=== PATIENT | male | born 1945 | race Caucasian/White ===

== ENCOUNTER 2017-03-05 09:42 | Outpatient (CLI) | payer MEDICARE, OTHER ==
[~2017-03-05] VITALS: Ht 180.3 cm; Wt 89.6 kg
[2017-03-05] MEDS ORDERED: HYDR-3816 PO (10:08)
[2017-03-05] MEDS ORDERED: LOSA100T28 PO (10:08)
[2017-03-05] MEDS ORDERED: NAPR220C11 PO (10:08)
[2017-03-05] MEDS ORDERED: PHYT100T PO (10:08)
[2017-03-05] MEDS ORDERED: GABA-486 PO (10:08)
[2017-03-05] MEDS ORDERED: POTA99TA21 PO (10:08)
[2017-03-05] MEDS ORDERED: MAGN250T13 PO (10:08)
[2017-03-05] MEDS ORDERED: CYAN500T44 PO (10:08)
[2017-03-05] MEDS ORDERED: OMEP20CA12 PO (10:08)
[2017-03-05] MEDS ORDERED: LEVO112T55 PO (10:08)
[2017-03-05] MEDS ORDERED: CALC-250 PO (10:08)
[2017-03-05] MEDS ORDERED: AMLO5TAB2 PO (10:08)
[2017-03-06] MEDS ORDERED: BICA50TA PO (09:11)
[2017-03-06] MEDS ORDERED: CYAN50008 PO (09:11)
[2017-03-06] MEDS ORDERED: LEVO125T6 PO (09:11)
[2017-03-06] MEDS ORDERED: MELO15TA39 PO (09:11)
[2017-03-06] MEDS ORDERED: GABA600T2 PO (09:11)
== END 2017-03-05 10:10 ==
LOC: PREOP 09:42
PROVIDERS: ATTEND Pain Medicine Pain Medicine
DX: Z01.818 Encounter for other preprocedural examination (principal); G89.4 Chronic pain syndrome; M54.5 Low back pain

== ENCOUNTER 2017-03-09 06:04 | Day surgery (SDC) | payer MEDICARE, OTHER ==
[~2017-03-09] VITALS: Ht 180.3 cm; Wt 89.6 kg
[~2017-03-09 06:04] MED LIST: AMLO5TAB2 PO; BICA50TA PO; CALC-250 PO; CYAN50008 PO; CYAN500T44 PO; GABA-486 PO; GABA600T2 PO; HYDR-3816 PO; LEVO112T55 PO; LEVO125T6 PO; LOSA100T28 PO; MAGN250T13 PO; MELO15TA39 PO; NAPR220C11 PO; OMEP20CA12 PO; PHYT100T PO; POTA99TA21 PO
[2017-03-09] MEDS ORDERED: ceFAZolin 2 GM/50 ML NS 50 ML ONE (06:12)
[2017-03-09] MEDS ORDERED: LACTATED RINGERS 1,000 ML IV PRN (06:41)
[2017-03-09] MEDS ORDERED: CATHETER FLUSH 10 ML SYR IV PRN (06:45)
[2017-03-09] MEDS ORDERED: ceFAZolin 2 GM/NS 50 ML IV ONE (06:45)
[2017-03-09] MEDS ORDERED: fentaNYL INJECTION 100 MCG/2 ML AMP ONE (07:08)
[2017-03-09] MEDS ORDERED: proPOfol 200 MG/20 ML (DIPRIVAN) VIAL IV ONE (07:08)
[2017-03-09 07:19] VITALS: BP 147/77
[2017-03-09] MEDS ORDERED: LIDOCAINE 1% INJ 20 ML (XYLOCAINE) VIAL ONE (07:25)
--- NOTE | 2017-03-09 07:31 | Progress Note-Pre Operative ---
Pre-Operative Progress Note H&P Reviewed The H&P was reviewed, patient examined and no changes noted. Date H&P Reviewed: Mar 09, 2017 Time H&P Reviewed: 07:30 Pre-Operative Diagnosis: chronic pain syndrome, lumbago, degenerative disc disease lumbar TYLER MCWILLIAMS MD Mar 09, 2017 7:31 am
[2017-03-09] MEDS ORDERED: LIDOCAINE 1% INJ 20 ML (XYLOCAINE) VIAL INJ ONE ×2 (08:15→08:30)
[2017-03-09] MEDS ORDERED: LACTATED RINGERS 1,000 ML IV ONE ×2 (08:26)
--- NOTE | 2017-03-09 08:44 | Discharge Inst-Simple/Standard ---
Discharge Inst-Standard Patient Instructions/Follow Up Plan of Care/Instructions/FU: Call clinic for any fevers, chills or bleeding/drainage from surgical site. Do not remove the dressings. No showers or bathing for 7 days. Turn off the spinal cord stimulator when driving. Follow up in clinic on 03/13/17 at 11:45 Call the spinal cord stimulator home furnishings sales representative or pain clinic for any questions or concerns. Activity as Tolerated: Yes Discharge Diet: No Restrictions TYLER MCWILLIAMS MD Mar 09, 2017 08:44
--- NOTE | 2017-03-09 08:48 | Operative Report ---
Operative Report Date of Procedure/Surgery Mar 09, 2017 Surgeon (s) TYLER MCWILLIAMS MD Sped Teacher (s): none Post-Operative Diagnosis chronic pain syndrome, lumbago, degenerative disc disease lumbar Procedure Performed AP Film of Thoracolumbar Spine w/ fluoroscopy guidance and interpretation Placement of specialized epidural needle to the L2-3 inter space bilaterally Placement of linear lead with dual 8 electrodes to the T7-T8 area Intra-operative complex programming of lead taking 30 minutes. Anchoring the spinal cord stimulator lead to the skin Complex programming in recovery taking 30 minutes. Description of Procedure Anesthesia Type: MAC Estimated blood loss (mL): <5 ml Specimen(s) collected/removed none Description of the Procedure The patient is an established patient with the above known diagnosis. The patient understands the reason for the procedure along with the risks, benefits and alternatives available. The patient has had the opportunity to ask questions prior to the procedure, and the patient has given written, informed, consent to proceed with the procedure. Medical Necessity: This patient has chronic pain that has failed to respond to conservative measures as outlined in the original history and physical exam. Patient's symptoms include pain in the low back, hips and legs bilaterally. The goals of treatment are to 1) achieve optimal pain control, recognizing that a pain-free state may not be achievable; 2) minimize adverse outcomes; 3) enhance functional abilities, and physical and psychological well-being; and 4) enhance the quality of life for patients with chronic pain. PROCEDURE NOTE: After obtaining written informed consent patient. Patient was taken to the operating room. Pre-procedure blood pressure and pulse were stable and recorded in patients clinic chart. A formal time out was performed. Ancef 2 gm IV was given. The patient was placed in the prone position on operating room table. The patient was attached to a vital sign monitor, continuously monitoring saturation through pulse oximeter, pulse rate, and routine checks on the blood pressure as recorded in the anesthesia record. Moderate level sedation was then achieved by anesthesia as detailed in anesthesia record. A large portion of the dorsal cavity was scrubbed with a micro-antibacterial surgical solution. The patient was draped in typical sterile fashion. After confirmation of vertebral count through thorocolumbar films, the C-arm was used to help define the angle and access point for the epidural needle. Prior to needle placement, and after location of the access point, lidocaine 1% was infiltrated into the skin and deeper tissue area for localization prior to specialized epidural needle placement. After the lidocaine had taken effect, a Touhy needle size 14-guage was introduced and advanced at the level of L2-L3 on the right and left side. Once the loss of resistance was positive using a glass syringe, an 8 electrode linear lead was channeled through the epidural needle and guided carefully to the T7-T8 inter space. The same steps were followed to place an 8 electrode lead midline to the left of the first lead. This placement gave appropriate stimulation. Various program settings were worked through within the operating room, to ensure appropriate coverage with the stimulation. Minor adjustments were made as needed to develop excellent coverage. There was no evidence of paresthesia, heme or CSF. Once the coverage was optimal, the guide needle was removed from the insertion site. The leads then were anchored using the tapered anchor 2-0 silk. Sterile dressing applied using tegaderm, bacitracin ointment and gauze. The patient was then taken from the operating room via stretcher and placed in a recovery room. Once in the recovery room, the fine tune adjustments were made to the stimulation pattern. This additional programming was needed to give the patient optimal coverage during the trial. Post operatively the patient was monitored until stable. Following the procedure the patient's vital signs were stable. fluoro time are recorded in the patient chart. Findings of the Procedure no complications noted Allergies and Home Medications Allergies Coded Allergies: No Known Drug Allergies (Unverified , 03/05/17) Home Medications Amlodipine Besylate 5 Mg Tablet, 5 MG PO DAILY, (Reported) Bicalutamide 50 Mg Tablet, PO DAILY, (Reported) Cholecalciferol 5,000 Unit Capsule, 5,000 UNIT PO DAILY, (Reported) Cyanocobalamin (Vitamin B-12) 5,000 Mcg Tab.rapdis, 5,000 MCG PO DAILY, ( Reported) Gabapentin 600 Mg Tablet, 600 MG PO HS, (Reported) Hydrocodone/Acetaminophen 1 Each Tablet, 1 EACH PO PRN, (Reported) Levothyroxine Sodium 125 Mcg Tablet, 125 MCG PO DAILY, (Reported) Losartan Potassium 100 Mg Tablet, 100 MG PO DAILY, (Reported) Magnesium Oxide 250 Mg Tablet, 250 MG PO DAILY, (Reported) Meloxicam 15 Mg Tablet, 15 MG PO DAILY, (Reported) Naproxen Sodium 220 Mg Capsule, 220 MG PO PRN, (Reported) Omeprazole 20 Mg Capsule.dr, 20 MG PO DAILY, (Reported) Phytonadione 100 Mcg Tablet, 100 MCG PO DAILY, (Reported) Potassium Gluconate 99 Mg Tablet, 99 MG PO DAILY, (Reported) TYLER MCWILLIAMS MD Mar 09, 2017 08:48
--- NOTE | 2017-03-09 08:53 | Diagnostic Imaging Report ---
INDICATION: Spinal stimulator. 2 minutes 1 second fluoroscopy time was utilized during placement of a spinal stimulator. IMPRESSION: Fluoroscopy utilized during stimulator placement. Dictated by: Dictated on workstation # [id number]
[2017-03-09] MEDS ORDERED: BACITRACIN OINTMENT 28 GM TUBE TOP SCH (09:00)
[2017-03-09 09:05] VITALS: BP 157/87
[2017-03-09 09:35] VITALS: BP 139/78
[2017-03-09 09:45] VITALS: BP 139/78
== END 2017-03-09 09:45 | disposition home or self-care (01) ==
LOC: SDC 06:04
PROVIDERS: ATTEND Pain Medicine Pain Medicine
DX: G89.4 Chronic pain syndrome (principal); M54.5 Low back pain; M51.36 Other intervertebral disc degeneration, lumbar region
CPT/HCPCS: 87081